=== PATIENT | female | born 1975 | race Caucasian/White ===

== ENCOUNTER → 2023-07-22 06:31 | Day surgery (SDC) | payer OTHER, SELFPAY | LOC: GI 06:31 | PROVIDERS: ATTENDING PHYSICIAN Internal Medicine | DX: Z12.11 Encounter for screening for malignant neoplasm of colon (principal); D12.8 Benign neoplasm of rectum; K57.30 Diverticulosis of large intestine without perforation or abscess without bleeding | CPT/HCPCS: 45385; 45380; 88305 ==

== ENCOUNTER → 2023-08-18 10:42 | Outpatient (REF) | payer OTHER, SELFPAY | LOC: RCS 10:42 | PROVIDERS: ATTENDING PHYSICIAN Nurse Practitioner Family; FAMILY PHYSICIAN Family Medicine | DX: R20.2 Paresthesia of skin (principal); R53.83 Other fatigue | CPT/HCPCS: 93017 ==

== ENCOUNTER → 2024-03-03 07:38 | Outpatient (REF) | payer OTHER, SELFPAY | LOC: RAD 07:38 | PROVIDERS: ATTENDING PHYSICIAN Family Medicine | DX: M79.602 Pain in left arm (principal); Z98.1 Arthrodesis status; M54.12 Radiculopathy, cervical region | CPT/HCPCS: 72052; 73030 ==

== ENCOUNTER → 2024-05-19 08:00 | Outpatient (REF) | payer OTHER, SELFPAY ==
[2024-05-19 11:39] LABS: Uric Acid 3.6 mg/dl (2.5-6.2)
[2024-05-20 10:12] LABS: Angiotensin-1-converting Enzym 20 U/L (16-85)
[2024-05-20 16:52] LABS: CCP Antibody IgG/IgA 2 Units (0-19)
[2024-05-21 01:28] LABS: SSA 52 (Ro)(ENA) Ab, IgG 0 AU/mL (0-40); SSA 60 (Ro)(ENA) Ab, IgG 0 AU/mL (0-40); SSB (La)(ENA) Ab, IgG 0 AU/mL (0-40)
== END ==
LOC: RAD 08:00
PROVIDERS: ATTENDING PHYSICIAN Internal Medicine Rheumatology; FAMILY PHYSICIAN Family Medicine
DX: M25.531 Pain in right wrist (principal); D86.86 Sarcoid arthropathy; M05.9 Rheumatoid arthritis with rheumatoid factor, unspecified; M25.532 Pain in left wrist; M35.09 Sjogren syndrome with other organ involvement; M48.02 Spinal stenosis, cervical region; M48.061 Spinal stenosis, lumbar region without neurogenic claudication; M50.30 Other cervical disc degeneration, unspecified cervical region; M54.16 Radiculopathy, lumbar region
CPT/HCPCS: 36415; 73110; 82164; 84550; 86140; 86200; 86235

== ENCOUNTER → 2024-07-07 11:41 | Outpatient (REF) | payer OTHER, SELFPAY | LOC: WDC 11:41 | PROVIDERS: ATTENDING PHYSICIAN Obstetrics & Gynecology Gynecology; FAMILY PHYSICIAN Family Medicine | DX: Z12.31 Encounter for screening mammogram for malignant neoplasm of breast (principal) | CPT/HCPCS: 77063; 77067 ==